=== PATIENT | male | born 1955 | race Hispanic/Latino ===

== ENCOUNTER 2018-01-12 06:43 | Day surgery (SDC) | payer OTHER ==
[2018-01-12 07:39] VITALS: BMI 32.2
[2018-01-12 07:59] VITALS: TEMP 97.8
[2018-01-12] MEDS ORDERED: Propofol 10 mg/ml Inj (20 ML) ONE (09:19)
--- NOTE | 2018-01-12 09:28 | CP.SDSHP ---
Same Day Surgery H & P - History Proposed Procedure: egd. colonoscopy Pre-Op Diagnosis: epigastric pain/heartburn. h/o PUD. Change in bowels. screening for colon cancer - Previous Medical/Surgical History Pulmonary: Emphysema/COPD Endocrine/Metabolic: Diabetes, Obesity Neuro: Backaches Misc: Other (DJD, Peptic ulcer disease) Pain: 2.Mild Pain - Allergies Allergies: Allergies No Known Allergies Allergy (Verified 01/12/18 07:32) - Physical Exam Vital Signs: Vital Signs 01/12/18 01/12/18 07:20 08:07 Temperature 97.8 F 97.8 F Pulse Rate 80 84 Respiratory 22 23 Rate Blood Pressure 142/84 129/101 H O2 Sat by Pulse 89 L 91 L Oximetry Mental Status: Alert & Oriented x3 Neuro: WNL Heart: WNL Lungs: WNL GI: WNL - Impression Impression: epigastric pain. heartburn. h/o PUD. Screening for colon cancer. Change in bowels Short Stay Discharge - Short Stay Discharge Admitting Diagnosis/Reason for Visit: EPIGASTRIC PAIN / CHANGE IN BOWEL HABIT Disposition: HOME/ ROUTINE
[2018-01-12] MEDS ORDERED: Pantoprazole 40 mg EC Tab PO STA (09:29)
[2018-01-12] MEDS ORDERED: Etomidate 20 mg/10ml Inj IV ONE (09:48)
[2018-01-12] MEDS ORDERED: Esmolol 100 mg/10ml Inj IV ONE (09:48)
[2018-01-12 10:51] VITALS: BP 129/68; PULSE 94; RESP 15; O2SAT 96
== END 2018-01-12 11:15 | disposition left against medical advice (07) ==
LOC: C.ENDO 06:43
PROVIDERS: ATTEND Internal Medicine Gastroenterology
DX: R10.13 Epigastric pain (principal); R19.4 Change in bowel habit; E66.01 Morbid (severe) obesity due to excess calories; Z12.11 Encounter for screening for malignant neoplasm of colon; D12.7 Benign neoplasm of rectosigmoid junction; K64.8 Other hemorrhoids; K29.70 Gastritis, unspecified, without bleeding
CPT/HCPCS: 43239; 45385; 82948; 88305; 88312; 88342; J2001; J2704; J3010